=== PATIENT | male | born 1975 | race American Indian/Alaskan Native ===

== ENCOUNTER 2017-11-18 14:48 | Inpatient (IN) | payer OTHER ==
[2017-11-18 15:46] LABS: Hematocrit 40.7 % (35.5-45.6); Hemoglobin 14.4 gm/dl (11.8-15.2); Mean Corpuscular HGB Conc 35 % (32-34); Mean Corpuscular Hemoglobin 34 pg (28-32); Mean Corpuscular Volume 95 fl (84-94); Platelet Count 249 K/mm3 (140-440); Red Blood Count 4.29 M/mm3 (3.65-5.03); Red Cell Distribution Width 14.2 % (13.2-15.2)
[2017-11-18 15:54] LABS: INR 0.83 (0.87-1.13)
[2017-11-18 15:55] LABS: Partial Thromboplastin Time 27.8 Sec. (24.2-36.6)
[2017-11-18] MEDS ORDERED: NACL 0.9% 1000 ML 1,000 ML IV ONE (15:56)
--- NOTE | 2017-11-18 15:59 | Emergency Department Report ---
ED Extremity Problem HPI - General Chief complaint: Extremity Injury, Lower Stated complaint: R THIGH PAIN Time Seen by Provider: 11/18/17 15:55 Source: patient, EMS Mode of arrival: Stretcher Limitations: No Limitations - History of Present Illness MD Complaint: extremity pain, extremity swelling -: Sudden Location: right, lower extremity History of Same: No -: No arthralgia, No fever, No associated chest pain Radiation: proximal Severity scale (0 -10): 10 Quality: sharp, constant Consistency: constant Improves with: nothing Worsens with: nothing Associated Symptoms: denies other symptoms. denies: shortness of breath - Related Data Allergies Allergy/AdvReac Type Severity Reaction Status Date / Time Iodinated Contrast- Oral and Allergy Unknown Verified 11/18/17 15:27 IV Dye Penicillins Allergy Unknown Verified 11/18/17 15:27 shellfish derived Allergy Unknown Verified 11/18/17 15:27 ED Review of Systems ROS: Stated complaint: R THIGH PAIN Other details as noted in HPI Comment: All other systems reviewed and negative Constitutional: denies: chills, diaphoresis, fever Eyes: denies: vision change ENT: denies: ear pain Respiratory: no symptoms reported. denies: cough, orthopnea, shortness of breath Cardiovascular: denies: chest pain, palpitations, dyspnea on exertion, syncope Endocrine: no symptoms reported Gastrointestinal: denies: abdominal pain, nausea, vomiting, diarrhea Genitourinary: denies: urgency, dysuria, frequency Musculoskeletal: myalgia. denies: back pain, joint swelling Skin: denies: rash, lesions, change in color Neurological: denies: headache, weakness, numbness, paresthesias Psychiatric: denies: anxiety, depression, auditory hallucinations Hematological/Lymphatic: denies: easy bleeding, easy bruising ED Past Medical Hx - Past Medical History Previous Medical History?: Yes Hx Hypertension: Yes - Surgical History Past Surgical History?: No - Social History Smoking Status: Never Smoker Substance Use Type: None ED Physical Exam - General Limitations: No Limitations General appearance: alert, in distress - Head Head exam: Present: atraumatic, normocephalic, normal inspection - Eye Eye exam: Present: normal appearance, PERRL, EOMI Pupils: Present: normal accommodation - ENT ENT exam: Present: normal exam, normal orophraynx, mucous membranes moist - Neck Neck exam: Present: normal inspection, full ROM. Absent: tenderness - Respiratory Respiratory exam: Present: normal lung sounds bilaterally. Absent: respiratory distress, wheezes, rhonchi - Cardiovascular Cardiovascular Exam: Present: regular rate, normal rhythm - GI/Abdominal GI/Abdominal exam: Present: soft, normal bowel sounds. Absent: tenderness, guarding, rebound - Extremities Exam Extremities exam: Present: tenderness, normal capillary refill, pedal edema, calf tenderness, other (Left thigh hematoma.). Absent: full ROM - Back Exam Back exam: Present: normal inspection, full ROM. Absent: tenderness - Psychiatric Psychiatric exam: Present: normal affect, normal mood - Skin Skin exam: Present: warm, dry, intact, ecchymosis (Left mid thigh) ED Course Vital Signs 11/18/17 11/18/17 11/18/17 15:05 15:08 15:16 Temperature 98.1 F Pulse Rate 102 H 94 H 88 Respiratory 19 20 Rate Blood Pressure 166/124 166/124 O2 Sat by Pulse 99 100 100 Oximetry 11/18/17 11/18/17 11/18/17 15:30 15:46 16:00 Temperature Pulse Rate 83 88 75 Respiratory 12 22 22 Rate Blood Pressure 204/114 204/114 225/128 O2 Sat by Pulse 100 100 100 Oximetry - Reevaluation(s) Reevaluation #1: 11/18/17 17:03 I discussed patient care with the hospitalist on-call Dr. Mitchell. He will admit patient for pain control and for further evaluation and management. ED Medical Decision Making - Lab Data Result diagrams: 11/18/17 15:33 11/18/17 15:33 - Radiology Data Radiology results: report reviewed - Medical Decision Making Left Tight Hematoma. R/o DVT. Critical care attestation.: If time is entered above; I have spent that time in minutes in the direct care of this critically ill patient, excluding procedure time. ED Disposition Clinical Impression: Hematoma of left thigh Qualifiers: Encounter type: initial encounter Qualified Code(s): S70.12XA - Contusion of left thigh, initial encounter Pain, lower extremity Qualifiers: Laterality: right Qualified Code(s): M79.604 - Pain in right leg Disposition: OP ADMIT IP TO THIS HOSP Is pt being admited?: Yes Does the pt Need Aspirin: No Condition: Stable Referrals: PRIMARY CARE, [Primary Care Provider] - 3-5 Days Time of Disposition: 17:03
[2017-11-18] MEDS ORDERED: DILAUDID IV ONE (16:00)
[2017-11-18] MEDS ORDERED: ZOFRAN IV ONE (16:01)
[2017-11-18] MEDS ORDERED: SUBLIMAZE ONE (16:05)
[2017-11-18] MEDS ORDERED: SUBLIMAZE IV ONE (16:07)
[2017-11-18 16:08] LABS: Alanine Aminotransferase 13 units/L (7-56); Albumin 4.1 g/dL (3.9-5); BUN/Creatinine Ratio 18; Blood Urea Nitrogen 18 mg/dL (9-20); Calcium 9.3 mg/dL (8.4-10.2); Hemolysis Index 13
[2017-11-18 16:51] LABS: Platelet Estimate Consistent w Auto; RBC Morphology Normal; Total Cells Counted 100
[2017-11-18 16:52] LABS: Large Platelets 1+
[2017-11-18] MEDS ORDERED: LOVENOX SUB-Q ONE (17:09)
--- NOTE | 2017-11-18 18:44 | History and Physical Report ---
History of Present Illness Date of examination: 11/18/17 Date of admission: 11/18/17 17:07 Chief complaint: Chief complaint: Right lower extremity swelling and severe pain for 3 days History of present illness: History of present illness: 42-year-old -[place] male with no significant past medical history comes in for severe pain in the right thigh for the last 3 days. Associated with severe spasm. Pain is 10 over 10 and is crying because of the pain. Sharp in nature. No trauma. On repeated questioning patient denies any trauma. Patient has swelling in the right lower third of the thigh. The swelling is extending from the anterior compartment of the posterior compartment and hot to touch with some discoloration on the skin. No recent travel No shortness of breath. No fever or chills. Past medical history: Hypertension Past surgical history: None Family history: Hypertension Social history: No drugs or alcohol abuse No smoking. Review of Systems ROS: Stated complaint: R THIGH PAIN Other details as noted in HPI Comment: All other systems reviewed and negative Constitutional: denies: chills, diaphoresis, fever Eyes: denies: vision change ENT: denies: ear pain Respiratory: no symptoms reported. denies: cough, orthopnea, shortness of breath Cardiovascular: denies: chest pain, palpitations, dyspnea on exertion, syncope Endocrine: no symptoms reported Gastrointestinal: denies: abdominal pain, nausea, vomiting, diarrhea Genitourinary: denies: urgency, dysuria, frequency Musculoskeletal: myalgia swelling of the right thigh the lower third with pain of 10 over 10 Skin: denies: rash, lesions, change in color Neurological: denies: headache, weakness, numbness, paresthesias Psychiatric: denies: anxiety, depression, auditory hallucinations Hematological/Lymphatic: denies: easy bleeding, easy bruising Medications and Allergies Allergies Allergy/AdvReac Type Severity Reaction Status Date / Time Iodinated Contrast- Oral and Allergy Unknown Verified 11/18/17 15:27 IV Dye Penicillins Allergy Unknown Verified 11/18/17 15:27 shellfish derived Allergy Unknown Verified 11/18/17 15:27 Exam - Physical Exam Narrative exam: Lying in bed comfortably - Constitutional Vitals: Temp Pulse Resp BP Pulse Ox 98.1 F 73 20 207/114 100 11/18/17 15:05 11/18/17 17:30 11/18/17 17:30 11/18/17 17:30 11/18/17 17:30 General appearance: Present: no acute distress, mild distress, well-nourished - EENT Eyes: Present: PERRL ENT: hearing intact, clear oral mucosa - Neck Neck: Present: supple, normal ROM - Respiratory Respiratory effort: normal Respiratory: bilateral: CTA - Cardiovascular Heart rate: 80 Rhythm: regular Heart Sounds: Present: S1 & S2. Absent: rub, click - Extremities Extremities: no ischemia, pulses intact, pulses symmetrical, No edema Peripheral Pulses: within normal limits - Abdominal General gastrointestinal: Present: soft, non-tender, non-distended, normal bowel sounds Male genitourinary: Present: normal - Rectal Rectal Exam: deferred - Integumentary Integumentary: Present: clear, warm, dry - Musculoskeletal Musculoskeletal: strength equal bilaterally, other (right lower thigh swelling present. Tight compartment felt in the lower third of the time with hyperpigmentation of the skin on the medial part of the thigh) - Psychiatric Psychiatric: appropriate mood/affect, intact judgment & insight - Neurologic Neurologic: CNII-XII intact, moves all extremities - Allied Health Allied health notes reviewed: nursing, case management Results - Labs CBC & Chem 7: 11/18/17 15:33 11/18/17 15:33 Labs: Laboratory Last Values WBC 10.6 K/mm3 (4.5-11.0) 11/18/17 15:33 RBC 4.29 M/mm3 (3.65-5.03) 11/18/17 15:33 Hgb 14.4 gm/dl (11.8-15.2) 11/18/17 15:33 Hct 40.7 % (35.5-45.6) 11/18/17 15:33 MCV 95 fl (84-94) H 11/18/17 15:33 MCH 34 pg (28-32) H 11/18/17 15:33 MCHC 35 % (32-34) H 11/18/17 15:33 RDW 14.2 % (13.2-15.2) 11/18/17 15:33 Plt Count 249 K/mm3 (140-440) 11/18/17 15:33 Add Manual Diff Complete 11/18/17 15:33 Total Counted 100 11/18/17 15:33 Seg Neuts % (Manual) 74.0 % (40.0-70.0) H 11/18/17 15:33 Band Neutrophils % 0 % 11/18/17 15:33 Lymphocytes % (Manual) 14.0 % (13.4-35.0) 11/18/17 15:33 Reactive Lymphs % (Man) 0 % 11/18/17 15:33 Monocytes % (Manual) 10.0 % (0.0-7.3) H 11/18/17 15:33 Eosinophils % (Manual) 1.0 % (0.0-4.3) 11/18/17 15:33 Basophils % (Manual) 1.0 % (0.0-1.8) 11/18/17 15:33 Metamyelocytes % 0 % 11/18/17 15:33 Myelocytes % 0 % 11/18/17 15:33 Promyelocytes % 0 % 11/18/17 15:33 Blast Cells % 0 % 11/18/17 15:33 Nucleated RBC % Not Reportable 11/18/17 15:33 Seg Neutrophils # Man 7.8 K/mm3 (1.8-7.7) H 11/18/17 15:33 Band Neutrophils # 0.0 K/mm3 11/18/17 15:33 Lymphocytes # (Manual) 1.5 K/mm3 (1.2-5.4) 11/18/17 15:33 Abs React Lymphs (Man) 0.0 K/mm3 11/18/17 15:33 Monocytes # (Manual) 1.1 K/mm3 (0.0-0.8) H 11/18/17 15:33 Eosinophils # (Manual) 0.1 K/mm3 (0.0-0.4) 11/18/17 15:33 Basophils # (Manual) 0.1 K/mm3 (0.0-0.1) 11/18/17 15:33 Metamyelocytes # 0.0 K/mm3 11/18/17 15:33 Myelocytes # 0.0 K/mm3 11/18/17 15:33 Promyelocytes # 0.0 K/mm3 11/18/17 15:33 Blast Cells # 0.0 K/mm3 11/18/17 15:33 WBC Morphology Not Reportable 11/18/17 15:33 Hypersegmented Neuts Not Reportable 11/18/17 15:33 Hyposegmented Neuts Not Reportable 11/18/17 15:33 Hypogranular Neuts Not Reportable 11/18/17 15:33 Smudge Cells Not Reportable 11/18/17 15:33 Toxic Granulation Not Reportable 11/18/17 15:33 Toxic Vacuolation Not Reportable 11/18/17 15:33 Dohle Bodies Not Reportable 11/18/17 15:33 Pelger-Huet Anomaly Not Reportable 11/18/17 15:33 Ahmet Rods Not Reportable 11/18/17 15:33 Platelet Estimate Consistent w auto 11/18/17 15:33 Clumped Platelets Not Reportable 11/18/17 15:33 Plt Clumps, EDTA Not Reportable 11/18/17 15:33 Large Platelets 1+ 11/18/17 15:33 Giant Platelets Not Reportable 11/18/17 15:33 Platelet Satelliting Not Reportable 11/18/17 15:33 Plt Morphology Comment Not Reportable 11/18/17 15:33 RBC Morphology Normal 11/18/17 15:33 Dimorphic RBCs Not Reportable 11/18/17 15:33 Polychromasia Not Reportable 11/18/17 15:33 Hypochromasia Not Reportable 11/18/17 15:33 Poikilocytosis Not Reportable 11/18/17 15:33 Anisocytosis Not Reportable 11/18/17 15:33 Microcytosis Not Reportable 11/18/17 15:33 Macrocytosis Not Reportable 11/18/17 15:33 Spherocytes Not Reportable 11/18/17 15:33 Pappenheimer Bodies Not Reportable 11/18/17 15:33 Sickle Cells Not Reportable 11/18/17 15:33 Target Cells Not Reportable 11/18/17 15:33 Tear Drop Cells Not Reportable 11/18/17 15:33 Ovalocytes Not Reportable 11/18/17 15:33 Helmet Cells Not Reportable 11/18/17 15:33 Kiser-Harleigh Bodies Not Reportable 11/18/17 15:33 [place] Rings Not Reportable 11/18/17 15:33 Yumi Cells Not Reportable 11/18/17 15:33 Bite Cells Not Reportable 11/18/17 15:33 Crenated Cell Not Reportable 11/18/17 15:33 Elliptocytes Not Reportable 11/18/17 15:33 Acanthocytes (Spur) Not Reportable 11/18/17 15:33 Rouleaux Not Reportable 11/18/17 15:33 Hemoglobin C Crystals Not Reportable 11/18/17 15:33 Schistocytes Not Reportable 11/18/17 15:33 Malaria parasites Not Reportable 11/18/17 15:33 Jame Bodies Not Reportable 11/18/17 15:33 Hem Pathologist Commnt No 11/18/17 15:33 PT 11.8 Sec. (12.2-14.9) L 11/18/17 15:33 INR 0.83 (0.87-1.13) L 11/18/17 15:33 APTT 27.8 Sec. (24.2-36.6) 11/18/17 15:33 Sodium 136 mmol/L (137-145) L 11/18/17 15:33 Potassium 4.4 mmol/L (3.6-5.0) 11/18/17 15:33 Chloride 95.7 mmol/L (98-107) L 11/18/17 15:33 Carbon Dioxide 25 mmol/L (22-30) 11/18/17 15:33 Anion Gap 20 mmol/L 11/18/17 15:33 BUN 18 mg/dL (9-20) 11/18/17 15:33 Creatinine 1.0 mg/dL (0.8-1.5) 11/18/17 15:33 Estimated GFR > 60 ml/min 11/18/17 15:33 BUN/Creatinine Ratio 18 % 11/18/17 15:33 Glucose 101 mg/dL (75-100) H 11/18/17 15:33 Lactic Acid 1.80 mmol/L (0.7-2.0) 11/18/17 15:38 Calcium 9.3 mg/dL (8.4-10.2) 11/18/17 15:33 Total Bilirubin 0.50 mg/dL (0.1-1.2) 11/18/17 15:33 AST 26 units/L (5-40) 11/18/17 15:33 ALT 13 units/L (7-56) 11/18/17 15:33 Alkaline Phosphatase 95 units/L (35-129) 11/18/17 15:33 Total Creatine Kinase 613 units/L (55-170) H 11/18/17 16:45 Total Protein 7.3 g/dL (6.3-8.2) 11/18/17 15:33 Albumin 4.1 g/dL (3.9-5) 11/18/17 15:33 Albumin/Globulin Ratio 1.3 % 11/18/17 15:33 - Imaging and Cardiology EKG: report reviewed Imaging and Cardiology: VASCULAR LAB.PRELIMINARY REPORT. RLE VENOUS DUPLEX DONE BEDSIDE. NO EVIDENCE OF DVT/SVT IN VESSELS VISUALIZED. SOFT TISSUE CHANGES SEEN IN THE RT.MID TO DISTAL THIGH PROBABLY HEMATOMA. Assessment and Plan Advance Directives: Yes (full code) VTE prophylaxis?: Mechanical Plan of care discussed with patient/family: Yes - Patient Problems (1) Hematoma of right thigh Current Visit: Yes Status: Acute Qualifiers: Encounter type: initial encounter Qualified Code(s): S70.11XA - Contusion of right thigh, initial encounter Plan to address problem: Pain control Cold compresses Admit for observation To make sure compartment syndrome doesn't happen No evidence of compartment syndrome at this point We will consult surgery and orthopedics. Patient may not need incision and drainage at this point (2) Hypertension Current Visit: Yes Status: Chronic Qualifiers: Hypertension type: essential hypertension Qualified Code(s): I10 - Essential (primary) hypertension Plan to address problem: Continue losartan 50 once a day (3) Hyponatremia Current Visit: Yes Status: Acute Plan to address problem: Mild-will stop the diuretics (4) DVT prophylaxis Current Visit: Yes Status: Acute Plan to address problem: SCDs only no heparin or Lovenox because of the hematoma
[2017-11-18] MEDS ORDERED: SODIUM CHLORIDE FLUSH SYRINGE 10 ML IV PRN (18:49)
[2017-11-18] MEDS ORDERED: ZOFRAN IV PRN (18:49)
[2017-11-18] MEDS ORDERED: TYLENOL PO PRN (18:49)
[2017-11-18] MEDS ORDERED: MORPHINE ONE ×2 (19:52→19:53)
[2017-11-18] MEDS ORDERED: ZOFRAN ONE (19:53)
[2017-11-18] MEDS: MORPHINE IV PRN ×2 (19:58→23:44)
[2017-11-18] MEDS ORDERED: D5NS 1,000 ML IV SCH (20:00)
[2017-11-18] MEDS ORDERED: APRESOLINE IV PRN (21:06)
[2017-11-18] MEDS: PERCOCET 5/325 PO PRN (21:09)
[2017-11-18] MEDS: PEPCID PO SCH (21:09)
[2017-11-18] MEDS: SODIUM CHLORIDE FLUSH SYRINGE 10 ML IV SCH (21:14)
[2017-11-19] MEDS: PERCOCET 5/325 PO PRN ×3 (02:40→14:57)
[2017-11-19 05:13] LABS: Basophils % (Auto) 0.5 % (0.0-1.8); Eosinophils # (Auto) 0.1 K/mm3 (0.0-0.4); Eosinophils % (Auto) 0.6 % (0.0-4.3); Hematocrit 36.7 % (35.5-45.6); Hemoglobin 12.4 gm/dl (11.8-15.2); Lymphocytes # (Auto) 2.1 K/mm3 (1.2-5.4); Lymphocytes % (Auto) 24.7 % (13.4-35.0); Mean Corpuscular HGB Conc 34 % (32-34); Mean Corpuscular Hemoglobin 32 pg (28-32); Mean Corpuscular Volume 97 fl (84-94); Monocytes % (Auto) 12.5 % (0.0-7.3); Platelet Count 218 K/mm3 (140-440); Red Blood Count 3.81 M/mm3 (3.65-5.03); Red Cell Distribution Width 14.3 % (13.2-15.2)
[2017-11-19 05:27] LABS: Alanine Aminotransferase 10 units/L (7-56); Albumin 3.6 g/dL (3.9-5); BUN/Creatinine Ratio 13; Blood Urea Nitrogen 10 mg/dL (9-20); Calcium 8.6 mg/dL (8.4-10.2); Hemolysis Index 3
[2017-11-19] MEDS: MORPHINE IV PRN ×2 (06:38→11:47)
[2017-11-19 08:24] VITALS: BP 148/91
[2017-11-19] MEDS ORDERED: NORVASC PO SCH (10:00)
[2017-11-19] MEDS ORDERED: COZAAR PO SCH (10:00)
[2017-11-19] MEDS: PEPCID PO SCH (10:06)
--- NOTE | 2017-11-19 10:07 | Vascular Lab Report ---
Right Lower Extremity Venous Duplex Study: Reason for Exam: Pain and swelling of the right lower extremity. Comments on the Right: All veins visualized are freely compressible without evidence of internal echogenicity. Flow is spontaneous and phasic throughout. No evidence of acute or chronic thrombus is seen in any of the vessels visualized. Nonspecific soft tissue changes are seen in the mid medial thigh. Ultrasound characteristics are consistent with a hematoma. Clinical correlation recommended. Comments on the Left: A limited duplex study was done of the proximal veins of the left lower extremity. All veins visualized are freely compressible without evidence of internal echogenicity. Flow is spontaneous and phasic throughout. No evidence of acute or chronic thrombus is seen in any of the vessels visualized. Impression: No evidence of acute or chronic deep venous thrombosis in the right lower extremity. Possible hematoma in the medial right thigh. Clinical correlation recommended.
[2017-11-19] MEDS: SODIUM CHLORIDE FLUSH SYRINGE 10 ML IV SCH (10:08)
--- NOTE | 2017-11-19 13:52 | Consultation ---
History of Present Illness - HPI Consult date: 11/19/17 Consult reason: joint pain History of present illness: 42 y/o male with c/o right thigh pain and swelling x 3 days, states began as crampy sensation and progressed over time..denies hx of trauma or previous episodes...+ Tobacco use 1ppd x yrs.... Medications and Allergies Allergies Allergy/AdvReac Type Severity Reaction Status Date / Time Iodinated Contrast- Oral and Allergy Unknown Verified 11/18/17 15:27 IV Dye Penicillins Allergy Unknown Verified 11/18/17 15:27 shellfish derived Allergy Unknown Verified 11/18/17 15:27 Home Medications Medication Instructions Recorded Confirmed Last Taken Type HCTZ 50 mg PO DAILY 11/18/17 11/18/17 Unknown History Lisinopril 20 mg PO DAILY 11/18/17 11/18/17 Unknown History Active Meds: Active Medications Acetaminophen (Tylenol) 650 mg PO Q4H PRN PRN Reason: Pain MILD(1-3)/Fever >100.5/BONE Amlodipine Besylate (Norvasc) 10 mg PO QDAY [facility] Last Admin: 11/19/17 10:06 Dose: 10 mg Famotidine (Pepcid) 20 mg PO BID [facility] Last Admin: 11/19/17 10:06 Dose: 20 mg Hydralazine HCl (Apresoline) 10 mg IV Q3H PRN PRN Reason: Blood Pressure Last Admin: 11/18/17 23:07 Dose: 10 mg Dextrose/Sodium Chloride (D5ns) 1,000 mls @ 75 mls/hr IV DIRECT [facility] Last Admin: 11/18/17 21:14 Dose: 75 mls/hr Losartan Potassium (Cozaar) 100 mg PO QDAY [facility] Last Admin: 11/19/17 10:05 Dose: 100 mg Morphine Sulfate (Morphine) 4 mg IV Q4H PRN PRN Reason: Pain, Moderate (4-6) Last Admin: 11/19/17 11:47 Dose: 4 mg Ondansetron HCl (Zofran) 4 mg IV Q8H PRN PRN Reason: Nausea And Vomiting Last Admin: 11/18/17 19:58 Dose: 4 mg Oxycodone/Acetaminophen (Percocet 5/325) 1 tab PO Q6H PRN PRN Reason: Pain, Moderate (4-6) Last Admin: 11/19/17 08:42 Dose: 1 tab Sodium Chloride (Sodium Chloride Flush Syringe 10 Ml) 10 ml IV BID ERICA Last Admin: 11/19/17 10:08 Dose: 10 ml Sodium Chloride (Sodium Chloride Flush Syringe 10 Ml) 10 ml IV PRN PRN PRN Reason: LINE FLUSH Physical Examination - Physical exam Narrative exam: right LE - moderate swelling mid-upper thigh, slight erythema, tender to deep palpation, no fluctulence compartments compressible Assessment and Plan right thigh pain and swelling doubt infectious etiology, possible vasospasm from Tobacco abuse... told to weight bear as tolerated, can discharge from orthopedic standpoint...
--- NOTE | 2017-11-19 14:20 | Discharge Summary ---
Providers - Providers Date of Admission: 11/18/17 17:07 Date of discharge: 11/19/17 Attending physician: ROOPA GREGORY 11/18/17 18:49 Consult to Physician [CONS] Routine Comment: Consulting Provider: ANKITA MURRAY Physician Instructions: Reason For Exam: R Thigh Hematoma -compartment syndrome Primary care physician: [employer] [employer]DS Hospitalization Condition: Stable Hospital course: Patient is 42 yo man with h/o tobacco dep who pw right lower medial thigh pain, admitted to rule out compartment syndrome which was done. 11/18/17 16:40 - Radiology Dept. Note by BRIANNA BENNETT [facility] Num: [id number] : 1975 Patient Age: 42 VASCULAR LAB.PRELIMINARY REPORT. RLE VENOUS DUPLEX DONE BEDSIDE. NO EVIDENCE OF DVT/SVT IN VESSELS VISUALIZED. SOFT TISSUE CHANGES SEEN IN THE RT.MID TO DISTAL THIGH PROBABLY HEMATOMA. INFORMED AT 1631. Initialized on 11/18/17 16:40 - END OF NOTE -Right distal medial thigh pains, hematoma, ?injury -Tobacco dependency; advised him to stop, and offer nicotine patch which he declined -Patient specifically asking for narcotics "per OrthoDr. Murray Assessment and Plan right thigh pain and swelling doubt infectious etiology, possible vasospasm from Tobacco abuse... told to weight bear as tolerated, can discharge from orthopedic standpoint..." Disposition: - TO HOME OR SELFCARE Time spent for discharge: 36 minutes Core Measure Documentation - Palliative Care Palliative Care/ Comfort Measures: Not Applicable - Core Measures Any of the following diagnoses?: none - VTE Discharge Requirements Deep Vein Thrombosis/Pulmonary Embolism Present on Admission: No Has pt received <5 days of overlap therapy or INR<2.0: No Anticoagulant overlap therapy prescribed at discharge: No Contraindication No Overlap Therapy order at DC: Not Indicated Exam - Physical Exam Narrative exam: GEN: WDWN, NAD, Awake, Alert, Orientated x 3 HEENT: NCAT, EOMI, PERRL, OP Clear NECK: supple, no adenopathy, no thyromegaly, no JVD CVS/HEART: RRR, normal S1S2, pulses present bilaterally CHEST/LUNGS: CTA B, Symmetrical chest expansion, good air entry bilaterally GI/Abdomen: soft, NTND, good bowel sounds, no guarding or rebound /Bladder: no suprapubic tenderness, no CVA or paraspinal tenderness EXT/Skin: right distal thigh with formed abscess/fluctulence, some dark discoloration/erythema and swelling MSK: FROM x 4 Neuro: CN 2-12 grossly intact, no new focal deficits Psych: calm - Constitutional Vitals: Temp Pulse Resp BP Pulse Ox 98.4 F 76 15 148/91 98 11/19/17 08:18 11/19/17 10:05 11/19/17 08:18 11/19/17 10:06 11/19/17 08:18 Plan Activity: other (no strenous activity until cleared by Orth) Diet: low salt Special Instructions: smoking cessation Follow up with: PRIMARY CAREMD [Primary Care Provider] - 3-5 Days ANKITA MURRAY MD [Staff Physician] - 10 Days Prescriptions: amLODIPine [Norvasc] 10 mg PO QDAY #30 tablet Lisinopril 20 mg PO DAILY #30 tab oxyCODONE /ACETAMINOPHEN [Percocet 5/325 mg] 1 tab PO Q6H PRN #10 tablet PRN Reason: Pain , Severe (7-10)
--- NOTE | 2017-11-19 15:30 | XRay Report ---
Right femur: Pain. The soft tissues are swollen throughout the medial aspect of the proximal leg. No ulcerations identified. The articular surface of the femoral head demonstrates subchondral erosions. The bony structures are otherwise unremarkable. Impressions: Nonspecific swelling. Degenerative hip changes.
== END 2017-11-19 19:02 | disposition home or self-care (01) | DRG 605 ==
LOC: ED 14:48 → 3A 17:07
PROVIDERS: ADMIT Internal Medicine; ATTEND Internal Medicine
DX: S70.11XA Contusion of right thigh, initial encounter (principal); E87.1 Hypo-osmolality and hyponatremia; X58.XXXA Exposure to other specified factors, initial encounter; Y93.89 Activity, other specified; Y92.89 Other specified places as the place of occurrence of the external cause; Y99.8 Other external cause status; Z71.6 Tobacco abuse counseling; F17.200 Nicotine dependence, unspecified, uncomplicated; Z82.49 Family history of ischemic heart disease and other diseases of the circulatory system; I10 Essential (primary) hypertension; Z91.041 Radiographic dye allergy status; Z88.0 Allergy status to penicillin; Z91.013 Allergy to seafood
CPT/HCPCS: 36415; 80053; 82140; 82550; 85007; 85025; 85610; 85730; 87040; 96374; 96375; 99285; 99406; J0360; J2270; J2405; J3010; J7030; J7042

== ENCOUNTER 2022-01-16 16:10 | Emergency (ER) | payer SELFPAY ==
--- NOTE | 2022-01-16 16:27 | Emergency Department Report ---
ED Rash HPI - HPI Stated Complaint: ALLERGIC REACTION/HIVES Time Seen by Provider: 01/16/22 16:25 Location: Upper Extremities Suspected Cause: Other Rash Symptoms: Yes Itching, Yes Peeling, No Facial Swelling, No Tongue/Oral Swelling, No Breathing Difficulties, No Choking Sensation, No Wheezing/Dyspnea, No Blistering, No Fever, No Lightheaded, No Malaise, No Myalgias Severity: moderate Other History: 46 yo with a/c rash to b hands. wears gloves to work and rash is like a glove. denies prior latex allergy. weeping wounds. no purulence. vss. no fever. abc intact ED Review of Systems ROS: Stated complaint: ALLERGIC REACTION/HIVES Other details as noted in HPI Comment: All other systems reviewed and negative ED Past Medical Hx - Past Medical History Hx Hypertension: Yes - Surgical History Past Surgical History?: No - Family History Family history: no significant - Social History Smoking Status: Current Every Day Smoker Substance Use Type: Alcohol - Medications Home Medications: Home Medications Medication Instructions Recorded Confirmed Last Taken Type Lisinopril 20 mg PO DAILY #30 tab 11/19/17 Unknown Rx amLODIPine 10 mg PO QDAY #30 tablet 11/19/17 Unknown Rx Silver Sulfadiazine [Ssd] 400 gm TP BID #1 each 01/16/22 Unknown Rx cephALEXin [Keflex] 500 mg PO Q12HR #20 cap 01/16/22 Unknown Rx predniSONE [Deltasone] 20 mg PO DAILY #5 tablet 01/16/22 Unknown Rx Rash Exam - Exam General: Vital signs noted. No distress. Alert and acting appropriately. HEENT: No Periorbital Edema, No Conjuctival Injection, No Chemosis, No Perioral Edema, No Tongue Edema, No Uvular Edema, No Compromised Airway, No Drooling Lungs: Yes Good Air Exchange (Normal Breath Sounds), No Wheezes, No Ronchi, No Stridor, No Cough, No Labored Respirations, No Retractions, No Use of Accessory Muscles, No Other Abnormal Lung Sounds Heart: Yes Regular, No Murmur Skin: No Excoriations, No Weeping, No Erythema, No Edema, No Encrustations, No Other Other: Positive: Abdomen Normal, Neurologic Normal, Musculoskeletal Normal ED Medical Decision Making - Medical Decision Making Vital Signs 01/16/22 16:27 Temperature 98 F Pulse Rate 82 Respiratory 16 Rate Blood Pressure 168/81 [Left] O2 Sat by Pulse 100 Oximetry wound care provided tdap utd educated on wound care dc home with dc plan of care including diet/meds/activity and follow up pt verbalizes understanding of plan of care - Differential Diagnosis a/c rash ? allergy to gloves Critical care attestation.: If time is entered above; I have spent that time in minutes in the direct care of this critically ill patient, excluding procedure time. ED Disposition Clinical Impression: Chronic pruritic rash in adult Disposition: 01 HOME / SELF CARE / HOMELESS Is pt being admited?: No Does the pt Need Aspirin: No Condition: Stable Instructions: Contact Dermatitis Additional Instructions: meds as ordered follow up with derm for biopsy and definitive diagnosis of cause referrals below use hypoallergenic gloves Prescriptions: predniSONE [Deltasone] 20 mg PO DAILY #5 tablet cephALEXin [Keflex] 500 mg PO Q12HR #20 cap Silver Sulfadiazine [Ssd] 400 gm TP BID #1 each Referrals: CONY PARRISH MD [Staff Physician] - 3-5 Days CAROLINE JOHNSON MD [Referring] - 3-5 Days Forms: Work/School Release Form(ED) Time of Disposition: 16:50
[2022-01-16] MEDS ORDERED: diphenhydrAMINE 25 MG/10 ML ORAL LIQUID PO ONE (16:28)
[2022-01-16] MEDS ORDERED: FAMOTIDINE 20 MG TAB PO ONE (16:28)
[2022-01-16] MEDS ORDERED: diphenhydrAMINE 25 MG CAP PO ONE (16:28)
[2022-01-16] MEDS ORDERED: methylPREDNISolone ACETATE 80 MG/1 ML INJ IM ONE (16:28)
[2022-01-16] MEDS ORDERED: SODIUM CHLORIDE 0.9% IRR 500 ML BOTTLE IR ONE (16:29)
[2022-01-16 17:25] VITALS: BP 164/78
== END 2022-01-16 17:25 | disposition home or self-care (01) ==
LOC: ED 16:10
DX: L29.9 Pruritus, unspecified (principal); I10 Essential (primary) hypertension; F17.200 Nicotine dependence, unspecified, uncomplicated; F10.20 Alcohol dependence, uncomplicated
CPT/HCPCS: 96372; 99282; J1040; Q0163